=== PATIENT | male | born 1985 | race Caucasian/White ===

== ENCOUNTER 2023-08-10 13:07 | Emergency (ER) | payer OTHER ==
[~2023-08-10] VITALS: Ht 167.6 cm; Wt 85.7 kg
[2023-08-10 15:48] VITALS: BP 121/72; TEMP 98.5; O2SAT 100
== END 2023-08-10 15:49 ==
LOC: ER 13:10
DX: F10.129 Alcohol abuse with intoxication, unspecified (principal); Y90.9 Presence of alcohol in blood, level not specified; Z60.2 Problems related to living alone